=== PATIENT | male | born 1985 | race Hispanic/Latino ===

== ENCOUNTER 2017-10-02 19:49 | Emergency (ER) | payer OTHER ==
--- NOTE | 2017-10-02 21:54 | RAD REPORT ---
EXAM DESCRIPTION: Rosalio Yao (2 Views)10/02/2017 9:42 pm CLINICAL HISTORY: Cough COMPARISON: 2013 FINDINGS: The lungs appear clear of acute infiltrate. The heart is normal size IMPRESSION: No acute abnormalities displayed
[2017-10-02] MEDS ORDERED: ONDANSETRON 4 MG (ODT) TAB ONE (21:59)
[2017-10-02] MEDS ORDERED: DIAZEPAM 5 MG TABLET ONE (21:59)
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
== END 2017-10-02 22:29 | disposition home or self-care (01) ==
LOC: ER 19:49
DX: R10.30 Lower abdominal pain, unspecified (principal); V59.49XA Driver of pick-up truck or van injured in collision with other motor vehicles in traffic accident, initial encounter; F17.210 Nicotine dependence, cigarettes, uncomplicated
CPT/HCPCS: 71046; 99284

== ENCOUNTER 2018-03-25 02:42 | Emergency (ER) | payer OTHER ==
[2018-03-25] MEDS ORDERED: ONDANSETRON 4 MG/2 ML VIAL ONE (03:23)
[2018-03-25] MEDS ORDERED: NA CHLORIDE 0.9% 1,000 ML ONE (03:23)
[2018-03-25] MEDS ORDERED: MEPERIDINE HCL 50 MG/ML AMP ONE (03:23)
--- NOTE | 2018-03-25 04:27 | EDPHYS ---
Physician Documentation [facility] Name: Beto Michelle Age: 33 yrs Sex: Male : 1985 Arrival Date: 03/25/2018 Time: 02:44 Bed 5 Private MD: ED Physician Kranthi Beltrán HPI: 03/25 03:13 This 33 yrs old Male presents to ER via Ambulatory with complaints of Penile pkl Problem. 03:13 The patient presents with Prolonged painful erection. . Onset: The symptoms/episode pkl began/occurred just prior to arrival, 6 hour(s) ago. Associated signs and symptoms: The patient has no apparent associated signs or symptoms. Patient said he took Trazodone prior to onset of symptoms. Historical: - Allergies: 03:04 No Known Allergies; ao - Home Meds: 03:04 None [Active]; ao - PMHx: 03:04 None; ao - PSHx: 03:04 None; ao - Immunization history:: Adult Immunizations up to date. - Social history:: Smoking status: Patient uses tobacco products, denies chronic smoking, but will smoke occasionally, Patient uses alcohol, occasionally. Patient/guardian denies using street drugs. - Ebola Screening: : Patient negative for fever greater than or equal to 101.5 degrees Fahrenheit, and additional compatible Ebola Virus Disease symptoms Patient denies exposure to infectious person Patient denies travel to an Ebola-affected area in the 21 days before illness onset. ROS: 03:13 Eyes: Negative for injury, pain, redness, and discharge, ENT: Negative for injury, pkl pain, and discharge, Neck: Negative for injury, pain, and swelling, Cardiovascular: Negative for chest pain, palpitations, and edema, Respiratory: Negative for shortness of breath, cough, wheezing, and pleuritic chest pain, Abdomen/GI: Negative for abdominal pain, nausea, vomiting, diarrhea, and constipation, Back: Negative for injury and pain. 03:13 : Positive for painful erection. 03:13 MS/extremity: Negative for acute changes. 03:13 Skin: Negative for rash. 03:13 Neuro: Negative for altered mental status. Exam: 03:13 Head/Face: Normocephalic, atraumatic. Eyes: Pupils equal round and reactive to light, pkl extra-ocular motions intact. Lids and lashes normal. Conjunctiva and sclera are non-icteric and not injected. Cornea within normal limits. Periorbital areas with no swelling, redness, or edema. ENT: Nares patent. No nasal discharge, no septal abnormalities noted. Tympanic membranes are normal and external auditory canals are clear. Oropharynx with no redness, swelling, or masses, exudates, or evidence of obstruction, uvula midline. Mucous membranes moist. Neck: Trachea midline, no thyromegaly or masses palpated, and no cervical lymphadenopathy. Supple, full range of motion without nuchal rigidity, or vertebral point tenderness. No Meningismus. Chest/axilla: Normal chest wall appearance and motion. Nontender with no deformity. No lesions are appreciated. Cardiovascular: Regular rate and rhythm with a normal S1 and S2. No gallops, murmurs, or rubs. Normal PMI, no JVD. No pulse deficits. Respiratory: Lungs have equal breath sounds bilaterally, clear to auscultation and percussion. No rales, rhonchi or wheezes noted. No increased work of breathing, no retractions or nasal flaring. Abdomen/GI: Soft, non-tender, with normal bowel sounds. No distension or tympany. No guarding or rebound. No evidence of tenderness throughout. Back: No spinal tenderness. No costovertebral tenderness. Full range of motion. Skin: Warm, dry with normal turgor. Normal color with no rashes, no lesions, and no evidence of cellulitis. MS/ Extremity: Pulses equal, no cyanosis. Neurovascular intact. Full, normal range of motion. Neuro: Awake and alert, GCS 15, oriented to person, place, time, and situation. Cranial nerves II-XII grossly intact. Motor strength 5/5 in all extremities. Sensory grossly intact. Cerebellar exam normal. Normal gait. 03:13 : Male external genitalia: Penis slightly tender. Vital Signs: 03:02 BP 123 / 82; Pulse 55; Resp 16; Temp 97.8(O); Pulse Ox 95% on R/A; Weight 95.25 kg (R); ao Height 5 ft. 4 in. (162.56 cm) (R); Pain 2/10; 04:02 BP 99 / 54; Pulse 48; Resp 16; Pulse Ox 98% on R/A; ao 03:02 Body Mass Index 36.05 (95.25 kg, 162.56 cm) ao MDM: 04:25 Data reviewed: vital signs, nurses notes. pkl 04:26 Patient medically screened. pkl Administered Medications: 03:31 Drug: NS 0.9% 1000 ml Route: IV; Rate: 125 ml/hr; Site: right antecubital; ao 04:41 Follow up: IV Status: Completed infusion; Order to discontinue infusion; IV Intake: ao 300ml 03:32 Drug: Demerol 50 mg Route: IVP; Site: right antecubital; ao 04:42 Follow up: Response: No adverse reaction; Pain is decreased ao 03:32 Drug: Zofran 4 mg Route: IVP; Site: right antecubital; ao 04:42 Follow up: Response: No adverse reaction ao Disposition: 03/25/18 04:26 Discharged to Home. Impression: Painful penile erection ( resolved ). - Condition is Stable. - Medication Reconciliation Form, Thank You Letter, Antibiotic Education, Prescription Opioid Use form. - Follow up: Private Physician; When: 2 - 3 days; Reason: Re-evaluation by your physician. - Problem is new. - Symptoms have improved. Signatures: Kranthi Beltrán MD MD pkl Clive Ken RN RN ao Corrections: (The following items were deleted from the chart) 04:40 04:26 03/25/2018 04:26 Discharged to Home. Impression: Painful penile erection ( ao resolved ). Condition is Stable. Forms are Medication Reconciliation Form, Thank You Letter, Antibiotic Education, Prescription Opioid Use. Follow up: Private Physician; When: 2 - 3 days; Reason: Re-evaluation by your physician. Problem is new. Symptoms have improved. pkl
--- NOTE | 2018-03-25 04:27 | ER ---
Nurse's Notes [facility] Name: Beto Michelle Age: 33 yrs Sex: Male : 1985 Arrival Date: 03/25/2018 Time: 02:44 Bed 5 Private MD: Diagnosis: Painful penile erection ( resolved ) Presentation: 03/25 02:59 Presenting complaint: Patient states: I was put on Trazodone for insomnia few days ago ao and yesterday I had an erection that started about 2100. My erections didn't stop until about 0130 this morning and it was painful. Patient report calling nurse line and was recommended to come to ER. Patient report erection stopped about an hour ago. Transition of care: patient was not received from another setting of care. Onset of symptoms was March 24, 2018 at 21:00. Risk Assessment: Do you want to hurt yourself or someone else? Patient reports no desire to harm self or others. Initial Sepsis Screen: Does the patient meet any 2 criteria? No. Patient's initial sepsis screen is negative. Does the patient have a suspected source of infection? No. Patient's initial sepsis screen is negative. Care prior to arrival: None. 02:59 Method Of Arrival: Ambulatory ao 02:59 Acuity: SUSI 3 ao Historical: - Allergies: 03:04 No Known Allergies; ao - Home Meds: 03:04 None [Active]; ao - PMHx: 03:04 None; ao - PSHx: 03:04 None; ao - Immunization history:: Adult Immunizations up to date. - Social history:: Smoking status: Patient uses tobacco products, denies chronic smoking, but will smoke occasionally, Patient uses alcohol, occasionally. Patient/guardian denies using street drugs. - Ebola Screening: : Patient negative for fever greater than or equal to 101.5 degrees Fahrenheit, and additional compatible Ebola Virus Disease symptoms Patient denies exposure to infectious person Patient denies travel to an Ebola-affected area in the 21 days before illness onset. Screenin:11 Abuse screen: Denies threats or abuse. Denies injuries from another. Nutritional ao screening: No deficits noted. Tuberculosis screening: No symptoms or risk factors identified. Fall Risk None identified. Assessment: 03:04 General: Appears in no apparent distress. comfortable, Behavior is calm, cooperative, ao appropriate for age. Pain: Complains of pain in Penile Pain. Neuro: Level of Consciousness is awake, alert, obeys commands, Oriented to person, place, time, situation, Appropriate for age Moves all extremities. Full function Speech is normal, Facial symmetry appears normal, Pupils are PERRLA. Cardiovascular: Capillary refill < 3 seconds Patient's skin is warm and dry. Cardiovascular: Denies chest pain, lightheadedness, shortness of breath. Respiratory: Airway is patent Respiratory effort is even, unlabored, Respiratory pattern is regular, symmetrical. GI: Abdomen is non-distended. : Reports Erection that lasted four to five hours. EENT: No signs and/or symptoms were reported regarding the EENT system. Derm: Skin is intact, Skin is pink, warm \T\ dry. normal, Skin temperature is warm. Musculoskeletal: Circulation, motion, and sensation intact. Range of motion:. 04:02 Reassessment: Patient appears in no apparent distress at this time. Patient and/or ao family updated on plan of care and expected duration. Pain level reassessed. Patient is alert, oriented x 3, equal unlabored respirations, skin warm/dry/pink. 04:40 Reassessment: DC instructions given to patient. patient agree with the POC and to ao follow up with PCP. Vital Signs: 03:02 BP 123 / 82; Pulse 55; Resp 16; Temp 97.8(O); Pulse Ox 95% on R/A; Weight 95.25 kg (R); ao Height 5 ft. 4 in. (162.56 cm) (R); Pain 2/10; 04:02 BP 99 / 54; Pulse 48; Resp 16; Pulse Ox 98% on R/A; ao 03:02 Body Mass Index 36.05 (95.25 kg, 162.56 cm) ao ED Course: 02:44 Patient arrived in ED. ag3 02:59 Clvie Ken, LISA is Primary Nurse. ao 03:00 Kranthi Beltrán MD is Attending Physician. pkl 03:00 Inserted saline lock: 24 gauge in right antecubital area, using aseptic technique. ao 03:02 Triage completed. ao 03:04 Arm band placed on right wrist. Patient placed in an exam room, on a stretcher, on ao pulse oximetry, Patient notified of wait time. 03:11 Patient has correct armband on for positive identification. Pulse ox on. NIBP on. ao 04:38 No provider procedures requiring assistance completed. IV discontinued, intact, ao bleeding controlled, No redness/swelling at site. Pressure dressing applied. Administered Medications: 03:31 Drug: NS 0.9% 1000 ml Route: IV; Rate: 125 ml/hr; Site: right antecubital; ao 04:41 Follow up: IV Status: Completed infusion; Order to discontinue infusion; IV Intake: ao 300ml 03:32 Drug: Demerol 50 mg Route: IVP; Site: right antecubital; ao 04:42 Follow up: Response: No adverse reaction; Pain is decreased ao 03:32 Drug: Zofran 4 mg Route: IVP; Site: right antecubital; ao 04:42 Follow up: Response: No adverse reaction ao Intake: 04:41 IV: 300ml; Total: 300ml. ao Outcome: 04:26 Discharge ordered by . sarah 04:39 Discharged to home ambulatory. ao 04:39 Condition: stable 04:39 Discharge instructions given to patient, significant other, Instructed on discharge instructions, follow up and referral plans. Demonstrated understanding of instructions, follow-up care, medications. 04:40 Patient left the ED. ao Signatures: Kranthi Beltrán MD MD pkl Ortiz, Alex RN RN Odalys Mason 3
== END 2018-03-25 04:40 | disposition home or self-care (01) ==
LOC: ER 02:42
DX: N48.30 Priapism, unspecified (principal); Z72.0 Tobacco use
CPT/HCPCS: 96361; 96374; 96375; 99283; J2175; J2405; J7030

== ENCOUNTER 2019-02-24 13:36 | Emergency (ER) | payer OTHER ==
[2019-02-24 15:24] LABS: Absolute Lymphocytes (CBC) 1.8 K/uL (0.7-4.9); Basophils % 0.4 % (0-1.3); Lymphocytes % 20.1 % (15.3-44.8); RBC Red Blood Cell Count 5.21 M/uL (4.33-5.43)
[2019-02-24] MEDS ORDERED: ONDANSETRON 4 MG/2 ML VIAL ONE (15:46)
[2019-02-24] MEDS ORDERED: FAMOTIDINE 20 MG/2 ML VIAL IV ONE (15:46)
[2019-02-24] MEDS ORDERED: MORPHINE 4 MG/ML SYR ONE (15:46)
[2019-02-24] MEDS ORDERED: NA CHLORIDE 0.9% 1,000 ML ONE (15:47)
[2019-02-24 16:07] LABS: ALT/SGPT 25 U/L (12-78); AST/SGOT 12 U/L (15-37); Albumin 3.8 g/dL (3.4-5.0); Alkaline Phosphatase 87 U/L (45-117); BUN Blood Urea Nitrogen 10 mg/dL (7-18); Bicarbonate 29 mmol/L (21-32); Bilirubin Direct < 0.1 mg/dL (0-0.2); Bilirubin Total 0.3 mg/dL (0.2-1.0); Glucose Level 99 mg/dL (74-106); Lipase 126 U/L (73-393); Potassium 3.5 mmol/L (3.5-5.1); Protein, Total 7.4 g/dL (6.4-8.2); Sodium Level 143 mmol/L (136-145)
[2019-02-24 16:19] LABS: Urine Blood NEGATIVE (NEG); Urine Glucose NEGATIVE (NEG); Urine Protein NEGATIVE (NEG); Urine pH 7.5 (5.0-7.0)
--- NOTE | 2019-02-24 16:41 | RAD REPORT ---
EXAM DESCRIPTION: CT - Abdomen Pelvis W Contrast - 02/24/2019 4:26 pm CLINICAL HISTORY: ABD PAIN, patient indicates right-sided abdominal pain and nausea COMPARISON: CT imaging April 2015 TECHNIQUE: Biphasic, helical CT imaging of the abdomen and pelvis was performed following 100 ml non -ionic IV contrast. No oral contrast. All CT scans are performed using dose optimization technique as appropriate and may include automated exposure control or mA/KV adjustment according to patient size. FINDINGS: No suspicious findings in the lung bases. The liver, spleen, and pancreas show no suspicious findings. Gallbladder and biliary tree are also wi thout suspicious finding. Symmetric renal function is seen with no hydronephrosis or suspicious renal mass. No pyelonephritis o r acute parenchymal process. No bladder abnormalities. No adrenal abnormalities. No dilated bowel loops or bowel wall thickening. Appendix is normal. A few small mesenteric lymph nod es are present. No free air, free fluid or inflammatory stranding. No mass or bulky lymphadenopathy. Patient has a fat only umbilical hernia 2.5 cm in diameter with a 2.0 centimeter neck. This has enla rged slightly from the prior study. There is minimal congestion or edema of the fat within this herni a. This is not likely significant. No history provided could indicated periumbilical pain. There are no bowel loops involved. No suspicious bony findings. IMPRESSION: Contrast-enhanced CT imaging shows no acute or emergent finding. Nonacute findings are detailed in the body of the report. Patient's fat only umbilical hernia has enl arged slightly since 2014 but no history provided could indicated periumbilical pain.
--- NOTE | 2019-02-24 16:49 | RAD REPORT ---
EXAM DESCRIPTION: US - Abdomen Exam Limited - 02/24/2019 4:24 pm CLINICAL HISTORY: ABD PAIN COMPARISON: CT ABD PELVIS W CONTRAST dated 05/04/2015 FINDINGS: Gallbladder size is normal. No gallstones, wall thickening or pericholecystic fluid. Commo n bile duct is normal with no common duct stone identified. IMPRESSION: No acute gallbladder abnormality. No biliary tree dilatation or duct stone.
--- NOTE | 2019-02-24 16:53 | ER ---
Nurse's Notes [facility] Name: Beto Michelle Age: 34 yrs Sex: Male : 1985 Arrival Date: 02/24/2019 Time: 13:38 Bed 2 Private MD: Diagnosis: Abdominal tenderness;Gastritis, unspecified;Umbilical hernia Presentation: 02/24 13:52 Presenting complaint: Right sided abdominal pain and nausea since this morning. hb Transition of care: patient was not received from another setting of care. Onset of symptoms was February 24, 2019. Risk Assessment: Do you want to hurt yourself or someone else? Patient reports no desire to harm self or others. Care prior to arrival: None. 13:52 Method Of Arrival: Ambulatory hb 13:52 Acuity: SUSI 3 hb 15:00 Initial Sepsis Screen: Does the patient meet any 2 criteria? No. Patient's initial jl7 sepsis screen is negative. Does the patient have a suspected source of infection? No. Patient's initial sepsis screen is negative. Historical: - Allergies: 13:54 No Known Allergies; hb - Home Meds: 13:54 None [Active]; hb - PMHx: 16:33 Chagas disease; jl7 - PSHx: 13:54 None; hb - Immunization history:: Adult Immunizations up to date. - Social history:: Smoking status: Patient uses tobacco products, denies chronic smoking, but will smoke occasionally. - Ebola Screening: : No symptoms or risks identified at this time. - Family history:: not pertinent. Screenin:44 Abuse screen: Denies threats or abuse. Denies injuries from another. Nutritional jl7 screening: No deficits noted. Tuberculosis screening: No symptoms or risk factors identified. Fall Risk IV access (20 points). Total Castro Fall Scale indicates No Risk (0-24 pts). Assessment: 15:00 General: Appears in no apparent distress. uncomfortable, Behavior is calm, cooperative, jl7 appropriate for age. Pain: Complains of pain in right upper quadrant Pain currently is 6 out of 10 on a pain scale. Pain began 2-3 days ago. Neuro: Level of Consciousness is awake, alert, obeys commands, Oriented to person, place, time, situation. Cardiovascular: Patient's skin is warm and dry. Respiratory: Airway is patent Respiratory effort is even, unlabored, Respiratory pattern is regular, symmetrical. GI: Bowel sounds present X 4 quads. Abd is soft and non tender. : No signs and/or symptoms were reported regarding the genitourinary system. Urine is cloudy. EENT: No signs and/or symptoms were reported regarding the EENT system. Derm: Skin is pink, warm \T\ dry. Musculoskeletal: No signs and/or symptoms reported regarding the musculoskeletal system. 16:00 Reassessment: Patient appears in no apparent distress at this time. No changes from jl7 previously documented assessment. Patient and/or family updated on plan of care and expected duration. Pain level reassessed. Patient is alert, oriented x 3, equal unlabored respirations, skin warm/dry/pink. 16:40 Reassessment: Patient appears in no apparent distress at this time. pt reports jl7 increased pain, requesting the pain meds at this time, ERD notified, see MAR for orders. Vital Signs: 13:53 BP 136 / 84; Pulse 59; Resp 16; Temp 98.1; Pulse Ox 98% ; Weight 88.45 kg; Height 5 ft. hb 5 in. (165.10 cm); Pain 6/10; 16:40 BP 147 / 94; Pulse 63; Resp 18; Pulse Ox 100% ; sv 13:53 Body Mass Index 32.45 (88.45 kg, 165.10 cm) hb ED Course: 13:38 Patient arrived in ED. rg4 13:53 Triage completed. hb 13:54 Arm band placed on right wrist. hb 14:57 Modesta Burch, LISA is Primary Nurse. jl7 14:58 Sanket Beavers MD is Attending Physician. yessica 15:30 Initial lab(s) drawn, by ED staff, sent to lab. Urine collected: clean catch specimen, jl7 cloudy. Inserted saline lock: 22 gauge in right antecubital area, using aseptic technique. Blood collected. 15:55 Radiology exam delayed due to lab results not completed at this time. (BUN/Creatinine) nj IV insertion attempt and/or patient not having appropriate IV at this time. 16:41 US Abdomen Limited In Process Unspecified. EDMS 16:41 CT Abd/Pelvis - IV Contrast Only In Process Unspecified. EDMS 16:44 Patient has correct armband on for positive identification. Placed in gown. Bed in low jl7 position. Call light in reach. Side rails up X 1. Pulse ox on. NIBP on. 16:51 Sammy Jaffe MD is Referral Physician. [facility] 16:51 Bladimir Mike MD is Referral Physician. [facility] 17:01 Chest Single View XRAY In Process Unspecified. EDMS 17:16 No provider procedures requiring assistance completed. IV discontinued, intact, jl7 bleeding controlled, No redness/swelling at site. Pressure dressing applied. Administered Medications: 15:54 Drug: NS 0.9% 1000 ml Route: IV; Rate: 1 bolus; Site: right antecubital; jl7 17:00 Follow up: Response: No adverse reaction; IV Status: Completed infusion; IV Intake: jl7 1000ml 15:57 Drug: Zofran 4 mg Route: IVP; Site: right antecubital; jl7 16:32 Follow up: Response: No adverse reaction jl7 15:58 Drug: Pepcid 20 mg Route: IVP; Site: right antecubital; jl7 16:32 Follow up: Response: No adverse reaction jl7 16:32 Not Given (Patient Refused): morphine 4 mg IVP once; RASS on ADMIN: Combtv4, Very jl7 Agttd3, Agttd2, Rstlss1, AlertClm0, Drwsy-1, Lt Sdtn-2, Mod Sdtn-3, Dp Sdtn-4, UnArsble-5 16:43 Drug: morphine 4 mg Route: IVP; Site: right antecubital; jl7 17:00 Follow up: Response: No adverse reaction; Pain is decreased jl7 Intake: 17:00 IV: 1000ml; Total: 1000ml. jl7 Outcome: 16:51 Discharge ordered by . [facility] 17:16 Discharged to home ambulatory. jl7 17:16 Condition: stable 17:16 Discharge instructions given to patient, family, Instructed on discharge instructions, follow up and referral plans. medication usage, Demonstrated understanding of instructions, follow-up care, medications, Prescriptions given X 3. 17:17 Patient left the ED. jl7 Signatures: Dispatcher [employer] EDSelene Millard RN RN sv Anderson, Corey, MD MD cha Baxter, Heather, RN RN hb Garcia, Rubi rg4 Kenny Rangel Jahala, RN RN jl7 Corrections: (The following items were deleted from the chart) 54 13:54 Social history: Smoking status: Patient/guardian denies using tobacco, [facility] 16:33 13:54 PMHx: None; jl7
--- NOTE | 2019-02-24 16:53 | EDPHYS ---
Physician Documentation [facility] Name: Beto Michelle Age: 34 yrs Sex: Male : 1985 Arrival Date: 02/24/2019 Time: 13:38 Bed 2 Private MD: AYLEEN Physician Sanket Beavers HPI: 02/24 15:35 This 34 yrs old Male presents to ER via Ambulatory with complaints of yessica Abdominal Pain, Flank Pain. 15:35 The patient complains of pain in the right mid back. yessica 15:36 The patient presents with abdominal pain in the epigastric area, in the upper abdomen. yessica Onset: The symptoms/episode began/occurred 2 week(s) ago. The pain does not radiate. Onset: The symptoms/episode began/occurred 2 week(s) ago. The symptoms do not radiate. Associated signs and symptoms: The patient has no apparent associated signs or symptoms. Modifying factors: The symptoms are alleviated by food, the symptoms are aggravated by food, movement, pressure, spicy food, touching the area. Historical: - Allergies: 13:54 No Known Allergies; hb - Home Meds: 13:54 None [Active]; hb - PMHx: 16:33 Chagas disease; jl7 - PSHx: 13:54 None; hb - Immunization history:: Adult Immunizations up to date. - Social history:: Smoking status: Patient uses tobacco products, denies chronic smoking, but will smoke occasionally. - Ebola Screening: : No symptoms or risks identified at this time. - Family history:: not pertinent. ROS: 15:36 Constitutional: Negative for fever, chills, and weight loss, Eyes: Negative for injury, yessica pain, redness, and discharge, ENT: Negative for injury, pain, and discharge, Neck: Negative for injury, pain, and swelling, Cardiovascular: Negative for chest pain, palpitations, and edema, Respiratory: Negative for shortness of breath, cough, wheezing, and pleuritic chest pain, Back: Negative for injury and pain, : Negative for injury, bleeding, discharge, and swelling, MS/Extremity: Negative for injury and deformity, Skin: Negative for injury, rash, and discoloration, Neuro: Negative for headache, weakness, numbness, tingling, and seizure, Psych: Negative for depression, anxiety, suicide ideation, homicidal ideation, and hallucinations, Allergy/Immunology: Negative for hives, rash, and allergies, Endocrine: Negative for neck swelling, polydipsia, polyuria, polyphagia, and marked weight changes, Hematologic/Lymphatic: Negative for swollen nodes, abnormal bleeding, and unusual bruising. 15:36 Abdomen/GI: Positive for abdominal pain, abdominal cramps, of the right upper quadrant. Exam: 15:36 Constitutional: This is a well developed, well nourished patient who is awake, alert, yessica and in no acute distress. Head/Face: Normocephalic, atraumatic. Eyes: Pupils equal round and reactive to light, extra-ocular motions intact. Lids and lashes normal. Conjunctiva and sclera are non-icteric and not injected. Cornea within normal limits. Periorbital areas with no swelling, redness, or edema. ENT: Nares patent. No nasal discharge, no septal abnormalities noted. Tympanic membranes are normal and external auditory canals are clear. Oropharynx with no redness, swelling, or masses, exudates, or evidence of obstruction, uvula midline. Mucous membranes moist. Neck: Trachea midline, no thyromegaly or masses palpated, and no cervical lymphadenopathy. Supple, full range of motion without nuchal rigidity, or vertebral point tenderness. No Meningismus. Chest/axilla: Normal chest wall appearance and motion. Nontender with no deformity. No lesions are appreciated. Cardiovascular: Regular rate and rhythm with a normal S1 and S2. No gallops, murmurs, or rubs. Normal PMI, no JVD. No pulse deficits. Respiratory: Lungs have equal breath sounds bilaterally, clear to auscultation and percussion. No rales, rhonchi or wheezes noted. No increased work of breathing, no retractions or nasal flaring. Back: No spinal tenderness. No costovertebral tenderness. Full range of motion. Male : Normal genitalia with no discharge or lesions. Skin: Warm, dry with normal turgor. Normal color with no rashes, no lesions, and no evidence of cellulitis. MS/ Extremity: Pulses equal, no cyanosis. Neurovascular intact. Full, normal range of motion. Neuro: Awake and alert, GCS 15, oriented to person, place, time, and situation. Cranial nerves II-XII grossly intact. Motor strength 5/5 in all extremities. Sensory grossly intact. Cerebellar exam normal. Normal gait. Psych: Awake, alert, with orientation to person, place and time. Behavior, mood, and affect are within normal limits. 15:36 Abdomen/GI: Inspection: abdomen appears normal, Bowel sounds: normal, Liver: no appreciated palpable abnormalities, Hernia: not appreciated. Vital Signs: 13:53 BP 136 / 84; Pulse 59; Resp 16; Temp 98.1; Pulse Ox 98% ; Weight 88.45 kg; Height 5 ft. hb 5 in. (165.10 cm); Pain 6/10; 16:40 BP 147 / 94; Pulse 63; Resp 18; Pulse Ox 100% ; sv 13:53 Body Mass Index 32.45 (88.45 kg, 165.10 cm) hb MDM: 14:58 Patient medically screened. [facility] 15:40 Data reviewed: vital signs, nurses notes, lab test result(s), radiologic studies, CT [facility] scan, plain films, ultrasound. 02/24 15:03 Order name: Basic Metabolic Panel 02/24 15:03 Order name: CBC with Diff 02/24 15:03 Order name: Creatinine for Radiology 02/24 15:03 Order name: Hepatic Function 02/24 15:03 Order name: Lipase 02/24 15:36 Order name: CBC with Automated Diff; Complete Time: 16:29 EDAR 02/24 15:34 Order name: Chest Single View XRAY [facility] 02/24 15:34 Order name: US Abdomen Limited [facility] 02/24 15:34 Order name: CT Abd/Pelvis - IV Contrast Only [facility] 02/24 16:11 Order name: Urine Dipstick--Ancillary (enter results) [facility] 02/24 16:21 Order name: Urine Dipstick-Ancillary; Complete Time: 16:29 EDMS 02/24 15:03 Order name: IV Saline Lock; Complete Time: 15:40 sv 02/24 15:03 Order name: Labs collected and sent; Complete Time: 15:41 sv Administered Medications: 15:54 Drug: NS 0.9% 1000 ml Route: IV; Rate: 1 bolus; Site: right antecubital; jl7 17:00 Follow up: Response: No adverse reaction; IV Status: Completed infusion; IV Intake: jl7 1000ml 15:57 Drug: Zofran 4 mg Route: IVP; Site: right antecubital; jl7 16:32 Follow up: Response: No adverse reaction jl7 15:58 Drug: Pepcid 20 mg Route: IVP; Site: right antecubital; jl7 16:32 Follow up: Response: No adverse reaction jl7 16:32 Not Given (Patient Refused): morphine 4 mg IVP once; RASS on ADMIN: Combtv4, Very jl7 Agttd3, Agttd2, Rstlss1, AlertClm0, Drwsy-1, Lt Sdtn-2, Mod Sdtn-3, Dp Sdtn-4, UnArsble-5 16:43 Drug: morphine 4 mg Route: IVP; Site: right antecubital; jl7 17:00 Follow up: Response: No adverse reaction; Pain is decreased jl7 Disposition: 02/24/19 16:51 Discharged to Home. Impression: Abdominal tenderness, Gastritis, unspecified, Umbilical hernia. - Condition is Stable. - Discharge Instructions: Abdominal Pain, Adult, Abdominal Pain, Adult, [id number]. - Prescriptions for Bentyl 20 mg Oral Tablet - take 1 tablet by ORAL route every 6 hours As needed; 20 tablet. Protonix 40 mg Oral Tablet - take 1 tablet by ORAL route once daily; 30 tablet. Zofran 4 mg Oral Tablet - take 1 tablet by ORAL route every 12 hours As needed; 20 tablet. - Medication Reconciliation Form, Thank You Letter, Antibiotic Education, Prescription Opioid Use, Work release form form. - Follow up: Private Physician; When: 2 - 3 days; Reason: Recheck today's complaints, Continuance of care, Re-evaluation by your physician. Follow up: Sammy Jaffe; When: 2 - 3 days; Reason: Recheck today's complaints, Continuance of care, Re-evaluation by your physician. Follow up: Bladimir Mike MD; When: 2 - 3 days; Reason: Recheck today's complaints, Re-evaluation by your physician. - Problem is new. - Symptoms have improved. Signatures: Dispatcher [employer] Selene Luque RN RN sv Anderson, Corey, MD MD cha Baxter, Heather RN Modesta Rangel RN RN jl7 Corrections: (The following items were deleted from the chart) 13:54 13:54 Social history: Smoking status: Patient/guardian denies using tobacco, hb hb 16:33 13:54 PMHx: None; hb jl7 17:17 16:51 02/24/2019 16:51 Discharged to Home. Impression: Abdominal tenderness; Gastritis, jl7 unspecified; Umbilical hernia. Condition is Stable. Discharge Instructions: Abdominal Pain, Adult, Abdominal Pain, Adult, [id number]. Prescriptions for Bentyl 20 mg Oral Tablet - take 1 tablet by ORAL route every 6 hours As needed; 20 tablet, Protonix 40 mg Oral Tablet - take 1 tablet by ORAL route once daily; 30 tablet, Zofran 4 mg Oral Tablet - take 1 tablet by ORAL route every 12 hours As needed; 20 tablet. and Forms are Medication Reconciliation Form, Thank You Letter, Antibiotic Education, Prescription Opioid Use. Follow up: Private Physician; When: 2 - 3 days; Reason: Recheck today's complaints, Continuance of care, Re-evaluation by your physician. Follow up: Sammy Jaffe; When: 2 - 3 days; Reason: Recheck today's complaints, Continuance of care, Re-evaluation by your physician. Follow up: Bladimir Mike; When: 2 - 3 days; Reason: Recheck today's complaints, Re-evaluation by your physician. Problem is new. Symptoms have improved. yessica
--- NOTE | 2019-02-24 17:05 | RAD REPORT ---
EXAM DESCRIPTION: RAD - Chest Single View - 02/24/2019 4:47 pm CLINICAL HISTORY: Abdominal pain, abdominal distention COMPARISON: September 2017 TECHNIQUE: AP portable chest image was obtained 1630 hours . FINDINGS: Lungs are clear. Heart and vasculature are normal. No measurable pleural effusion and no p neumothorax. No acute bony abnormality seen. No acute aortic findings suspected. IMPRESSION: No acute cardiopulmonary process. No significant change from comparison.
== END 2019-02-24 17:17 | disposition home or self-care (01) ==
LOC: ER 13:36
DX: K29.70 Gastritis, unspecified, without bleeding (principal); K42.9 Umbilical hernia without obstruction or gangrene; Z72.0 Tobacco use
CPT/HCPCS: 96361; 85025; 80048; 36415; 80076; 81003; 83690; 74177; 71045; 76705; 96375; 96374; 99284; Q9967; J7030; J2405

== ENCOUNTER 2019-05-10 07:06 | Emergency (ER) | payer OTHER ==
--- OUTSIDE RECORDS SUMMARY | 2019-05-10 07:08 | XMS REPORT ---
:1985 Author Organization [facility] Address [address] [place] [address] Care Team Providers Name Role Phone Unavailable Unavailable Unavailable Payers Payer Name Policy Type Policy Number Effective Date Expiration Date Problems This patient has no known problems. Allergies, Adverse Reactions, Alerts This patient has no known allergies or adverse reactions. Medications This patient has no known medications.
--- OUTSIDE RECORDS SUMMARY | 2019-05-10 07:09 | XMS REPORT ---
:1985 Author Organization eClinicalWorks Care Team Providers Name Role Phone Krystal Paige Provider Role Unavailable Allergies, Adverse Reactions, Alerts Substance Reaction Event Type N.K.D.A. Info Not Available Non Drug Allergy Problems Problem Type Condition Code Onset Dates Condition Status Problem Nausea and vomiting, intractability R11.2 Active of vomiting not specified, unspecified vomiting type Problem Memory problem R41.3 Active Problem Migraines G43.909 Active Problem S/P umbilical hernia repair, Z09 Active follow-up exam Problem Abdominal pain, unspecified R10.9 Active abdominal location Problem Umbilical pain R10.33 Active Problem Umbilical hernia without K42.9 Active obstruction and without gangrene Problem Depression F32.9 Active Problem Depression screening Z13.31 Active Problem Chagas disease 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 Active Assessment Umbilical pain R10.33 Active Problem Medical history non-contributory Z78.9 Active Assessment S/P umbilical hernia repair, Z09 Active follow-up exam Problem Pharyngitis, unspecified etiology J02.9 Active Medications Medication Code Code Instructions Start End Status Dosage System Date Date Augmentin [facility] 93152286531 875-125 MG Apr 30, Active 1 tablet Orally every 12 2018 hrs Multivitamins [facility] 88487-60210 Active not defined PredniSONE [facility] [id number] 20 MG Orally May 22, Active 1 tablet twice a day 2018 Results No Known Results Summary Purpose eClinicalWorks Submission
[2019-05-10] MEDS ORDERED: KETOROLAC 30 MG/ML INJ ONE (07:24)
[2019-05-10] MEDS ORDERED: DIAZEPAM 5 MG TABLET ONE ×2 (07:24→07:25)
--- NOTE | 2019-05-10 08:07 | ER ---
Nurse's Notes [facility] Name: Beto Michelle Age: 34 yrs Sex: Male : 1985 Arrival Date: 05/10/2019 Time: 07:07 Bed 5 Private MD: Diagnosis: Low back pain Presentation: 05/10 07:17 Presenting complaint: Patient states: I have had three days of bad back pain that la1 radiates down both legs, denies urinary sx, denies numbness/tingling. Transition of care: patient was not received from another setting of care. Onset of symptoms was May 10, 2019. Risk Assessment: Do you want to hurt yourself or someone else? Patient reports no desire to harm self or others. Initial Sepsis Screen: Does the patient meet any 2 criteria? No. Patient's initial sepsis screen is negative. Does the patient have a suspected source of infection? No. Patient's initial sepsis screen is negative. Care prior to arrival: None. 07:17 Method Of Arrival: Ambulatory la1 07:17 Acuity: SUSI 3 la1 Historical: - Allergies: 07:18 No Known Allergies; la1 - PMHx: 07:18 Chagas disease; la1 - Immunization history:: Adult Immunizations up to date. - Social history:: Smoking status: Patient/guardian denies using tobacco. - Ebola Screening: : No symptoms or risks identified at this time. Screenin:19 Abuse screen: Denies threats or abuse. Nutritional screening: No deficits noted. la1 Tuberculosis screening: No symptoms or risk factors identified. Fall Risk None identified. Assessment: 07:19 General: Appears in no apparent distress. Behavior is calm, cooperative. Pain: la1 Complains of pain in lumbar area Pain radiates to right leg and left leg. Neuro: Level of Consciousness is awake, alert, obeys commands, Oriented to person, place, time, situation. Cardiovascular: Capillary refill < 3 seconds Patient's skin is warm and dry. Respiratory: Airway is patent Respiratory effort is even, unlabored, Respiratory pattern is regular, symmetrical. GI: No signs and/or symptoms were reported involving the gastrointestinal system. : No signs and/or symptoms were reported regarding the genitourinary system. Musculoskeletal: Circulation, motion, and sensation intact. Capillary refill < 3 seconds, is brisk, in bilateral toes. Range of motion: intact in all extremities. Vital Signs: 07:18 BP 128 / 82; Pulse 72; Resp 16; Temp 97.1; Pulse Ox 100% on R/A; Weight 97.52 kg; la1 ED Course: 07:07 Patient arrived in ED. as 07:09 [facility] pm1 07:09 Mauro Cee MD is Attending Physician. pm1 07:17 Akbar Quiroga RN is Primary Nurse. la1 07:18 Triage completed. la1 07:19 Arm band placed on right wrist. la1 07:20 Patient has correct armband on for positive identification. la1 08:13 No provider procedures requiring assistance completed. Patient did not have IV access la1 during this emergency room visit. Administered Medications: 07:24 Not Given (Physician Discretion): Valium 5 mg PO once pm1 07:29 Drug: TORadol 60 mg Route: IM; Site: left gluteus; la1 08:12 Follow up: Response: No adverse reaction la1 07:30 Drug: Valium 10 mg Route: PO; la1 08:12 Follow up: Response: No adverse reaction la1 08:12 Drug: Decadron 10 mg Route: IM; Site: Other; la1 08:12 Follow up: Response: No adverse reaction la1 Outcome: 08:05 Discharge ordered by . pm1 08:13 Discharged to home ambulatory. la1 08:13 Condition: stable 08:13 Discharge instructions given to patient, Instructed on discharge instructions, follow up and referral plans. medication usage, Demonstrated understanding of instructions, follow-up care, medications, Prescriptions given X 2. 08:13 Patient left the ED. la1 Signatures: Aida Escobar Lee, RN RN la1 Yonas Mederos NP ROADS SUPERVISOR pm1
--- NOTE | 2019-05-10 08:07 | EDPHYS ---
Physician Documentation [facility] Name: Beto Michelle Age: 34 yrs Sex: Male : 1985 Arrival Date: 05/10/2019 Time: 07:07 Bed 5 Private MD: ED Physician Mauro Cee HPI: 05/10 07:30 This 34 yrs old Male presents to ER via Ambulatory with complaints of Low Back pm1 Pain. 07:30 The patient presents with pain that is acute. The symptoms are located in the low back. pm1 The problem was sustained from unknown cause. Onset: The symptoms/episode began/occurred 3 day(s) ago. Modifying factors: The patient symptoms are alleviated by remaining still, the patient symptoms are aggravated by bending, movement, twisting. Associated signs and symptoms: The patient has no apparent associated signs or symptoms, Pertinent negatives: abdominal pain, chest pain, dysuria, fever, headache, nausea, numbness, tingling, vomiting, weakness. Severity of symptoms: in the emergency department the symptoms are unchanged. The patient has not experienced similar symptoms in the past. The patient has not recently seen a physician. Historical: - Allergies: 07:18 No Known Allergies; la1 - PMHx: 07:18 Chagas disease; la1 - Immunization history:: Adult Immunizations up to date. - Social history:: Smoking status: Patient/guardian denies using tobacco. - Ebola Screening: : No symptoms or risks identified at this time. ROS: 07:30 Constitutional: Negative for fever, chills, and weight loss, Eyes: Negative for injury, pm1 pain, redness, and discharge, ENT: Negative for injury, pain, and discharge, Neck: Negative for injury, pain, and swelling, Cardiovascular: Negative for chest pain, palpitations, and edema, Respiratory: Negative for shortness of breath, cough, wheezing, and pleuritic chest pain, Abdomen/GI: Negative for abdominal pain, nausea, vomiting, diarrhea, and constipation. 07:30 : Negative for injury, bleeding, discharge, and swelling, MS/Extremity: Negative for injury and deformity, Skin: Negative for injury, rash, and discoloration, Neuro: Negative for headache, weakness, numbness, tingling, and seizure. 07:30 Back: Positive for of the low back area. Exam: 07:30 Constitutional: This is a well developed, well nourished patient who is awake, alert, pm1 and in no acute distress. Head/Face: Normocephalic, atraumatic. Neck: Trachea midline, no thyromegaly or masses palpated, and no cervical lymphadenopathy. Supple, full range of motion without nuchal rigidity, or vertebral point tenderness. No Meningismus. Chest/axilla: Normal chest wall appearance and motion. Nontender with no deformity. No lesions are appreciated. Cardiovascular: Regular rate and rhythm with a normal S1 and S2. No gallops, murmurs, or rubs. Normal PMI, no JVD. No pulse deficits. Respiratory: Lungs have equal breath sounds bilaterally, clear to auscultation and percussion. No rales, rhonchi or wheezes noted. No increased work of breathing, no retractions or nasal flaring. Abdomen/GI: Soft, non-tender, with normal bowel sounds. No distension or tympany. No guarding or rebound. No evidence of tenderness throughout. 07:30 Skin: Warm, dry with normal turgor. Normal color with no rashes, no lesions, and no evidence of cellulitis. MS/ Extremity: Pulses equal, no cyanosis. Neurovascular intact. Full, normal range of motion. 07:30 Back: pain, that is moderate, of the left low back and right low back, Straight leg raises: pain bilaterally. 07:30 Neuro: Orientation: is normal, Motor: moves all fours, strength is 5/5 in the dorsi and plantar flexion of bilateral great toes, Sensation: is normal, no obvious gross deficits, Deep tendon reflexes are 2+ (normal) in the right Achilles and left Achilles, Babinski testing is normal. Vital Signs: 07:18 BP 128 / 82; Pulse 72; Resp 16; Temp 97.1; Pulse Ox 100% on R/A; Weight 97.52 kg; la1 MDM: 07:09 Patient medically screened. pm1 07:56 Data reviewed: vital signs. Data interpreted: Pulse oximetry: on room air is 100 %. pm1 Interpretation: normal. 08:05 Counseling: I had a detailed discussion with the patient and/or guardian regarding: the pm1 historical points, exam findings, and any diagnostic results supporting the discharge/admit diagnosis, the need for outpatient follow up, to return to the emergency department if symptoms worsen or persist or if there are any questions or concerns that arise at home. Administered Medications: 07:24 Not Given (Physician Discretion): Valium 5 mg PO once pm1 07:29 Drug: TORadol 60 mg Route: IM; Site: left gluteus; la1 08:12 Follow up: Response: No adverse reaction la1 07:30 Drug: Valium 10 mg Route: PO; la1 08:12 Follow up: Response: No adverse reaction la1 08:12 Drug: Decadron 10 mg Route: IM; Site: Other; la1 08:12 Follow up: Response: No adverse reaction la1 Disposition: 05/11 00:39 Co-signature as Attending Physician, Mauro Cee MD. rn Disposition: 05/10/19 08:05 Discharged to Home. Impression: Low back pain. - Condition is Stable. - Discharge Instructions: Back Pain, Adult. - Prescriptions for Diclofenac Sodium 75 mg Oral Tablet, Delayed Release (E.C.) - take 1 tablet by ORAL route 2 times per day As needed; 30 tablet. Medrol (Joss) 4 mg Oral Tablets, Dose Pack - take 1 tablet by ORAL route as directed - follow package instructions; 1 packet. - Work release form, Medication Reconciliation Form, Thank You Letter, Antibiotic Education, Prescription Opioid Use form. - Follow up: Emergency Department; When: As needed; Reason: Worsening of condition. Follow up: Private Physician; When: 2 - 3 days; Reason: Recheck today's complaints, Continuance of care, Re-evaluation by your physician. - Problem is new. - Symptoms have improved. Signatures: Mauro Cee MD MD rn Attema, Lee, RN RN la1 Yonas Mederos, CRISTIAN [employer] THREAD MACHINE OPERATOR pm1 Corrections: (The following items were deleted from the chart) 05/10 08:13 08:05 05/10/2019 08:05 Discharged to Home. Impression: Low back pain. Condition is la1 Stable. Discharge Instructions: Back Pain, Adult. Prescriptions for Valium 5 mg Oral Tablet - take 1 tablet by ORAL route every 8 hours As needed; 20 tablet, Diclofenac Sodium 75 mg Oral Tablet Sustained Release - take 1 tablet by ORAL route 2 times per day; 30 tablet, Medrol (Ojss) 4 mg Oral Tablets, Dose Pack - take 1 tablet by ORAL route as directed - follow package instructions; 1 packet. and Forms are Medication Reconciliation Form, Thank You Letter, Antibiotic Education, Prescription Opioid Use. Follow up: Emergency Department; When: As needed; Reason: Worsening of condition. Follow up: Private Physician; When: 2 - 3 days; Reason: Recheck today's complaints, Continuance of care, Re-evaluation by your physician. Problem is new. Symptoms have improved. pm1
[2019-05-10] MEDS ORDERED: dexAMETHasone 10 MG/ML VIAL ONE (08:09)
[2019-05-10 08:18] VITALS: BP 128/82; TEMP 97.1; O2SAT 100
== END 2019-05-10 08:13 | disposition home or self-care (01) ==
LOC: ER 07:06
DX: M54.5 Low back pain (principal)
CPT/HCPCS: 96372; 99283; J1100

== ENCOUNTER 2019-09-30 | Emergency (ER) | payer OTHER | END 2019-09-30 23:26 | disposition home or self-care (01) | CPT/HCPCS: 85025; 80048; 36415; 80076; 83690; 74177; 96375; 96374; 99284; Q9967; J2405 ==

== ENCOUNTER 2020-01-26 17:52 | Emergency (ER) | payer OTHER ==
--- OUTSIDE RECORDS SUMMARY | 2020-01-26 17:53 | XMS REPORT | Continuity of Care Document ---
:1985 Author Organization [facility] t Address [address] [place] [address] Care Team Providers Name Role Phone Unavailable Unavailable Unavailable Payers Payer Name Policy Type Policy Number Effective Date Expiration Date S ource Problems Condition Condition Condition Status Onset Resolution Last Treating Co mments Source Name Details Category Date Date Treatment Clinician Date Medical Medical Problem Active [facility] non-[facility]ri non-contri Me moria butory butory l [facility] Chagas Chagas Problem Active [facility] disease disease [facility] Pharyngiti Pharyngiti Problem Active [facility] s, s, [facility] - unspecifie unspecifie Me moria d etiology d etiology l [facility] Memory Memory Problem Active [facility] problem problem [facility] Migraines Migraines Problem Active [facility] Depression Depression Problem [facility] Abdominal Abdominal Problem Active [facility] pain, pain, [facility] - unspecifie unspecifie Me moria d d l abdominal abdominal Outp ati location location ent Clinics Depression Depression Problem Active [facility] screening screening [facility] - [facility] Umbilical Umbilical Problem Active [facility] hernia hernia [facility] - without without Memoria obstructio obstructio l n and n and Outpati without without ent gangrene gangrene Clinic s Nausea and Nausea and Problem Active [facility] vomiting, vomiting, [facility] - intractabi intractabi Me moria lity of lity of l vomiting vomiting Outpat i not not ent specified, specified, Cl inics unspecifie unspecifie d vomiting d vomiting type type S/P S/P Problem Active [facility] umbilical umbilical [facility] - hernia hernia Memoria repair, repair, l follow-up follow-up Outp ati exam exam ent Clinics Umbilical Umbilical Problem Active [facility] pain pain [facility] Depression Depression Diagnosis Active [facility] with with [facility] - anxiety anxiety [facility] Increased Increased Problem Active [facility] body body [facility] weight weight [facility] Fatigue, Fatigue, Diagnosis Active [facility] unspecifie unspecifie Faiza kes - d type d type Memoria l [facility] JOYCE JOYCE Problem Active [facility] (obstructi (obstructi Faiza kes - ve sleep ve sleep Memori a apnea) apnea) l [facility] CPAP CPAP Problem Active [facility] (continuou (continuou Faiza kes - s positive s positive Me moria airway airway l pressure) pressure) Outp ati dependence dependence en t Clinics PTSD PTSD Diagnosis Active [facility] (post-trau (post-trau Faiza kes - matic matic Memoria stress stress l disorder) disorder) Outp ati ent Clinics Allergies, Adverse Reactions, Alerts This patient has no known allergies or adverse reactions. Medications Ordered Filled Start Stop Current Ordering Indication Dosage Frequency Signature Comments Components Source Medication Medication Date Date Medication? Clinician (SIG) Name Name PredniSONE PredniSONE 2017-06 Yes Krystal [address] [facility] 1[facility]29 [facility] 00[facility] 00 [facility] Augmentin Augmentin 2017-06 Yes Krystal [address] [facility] 1[facility]07 [facility] Multivitami Multivitami Yes Krystal not [facility] ns ns Millender defined [facility] Procedures This patient has no known procedures. Encounters Start End Encounter Admission Attending Care Care Encounter Source Date/Time Date/Time Type Type Clinicians Facility Department ID 2019-06-02 2019-06-02 Outpatient Vandana Wilks [id number] [facility] [address] 15:00:00 15:00:00 [facility] - [facility] 2019-04-15 2019-04-15 Outpatient Vandana Wilks [id number] [facility] 10[facility]20[facility] 10:[facility]:00 [facility] 2019-03-03 2019-03-03 Outpatient Vandana Wilks [id number] [facility] 15:20:00 15:20:00 [facility] ent Clinics Results This patient has no known results.
[2020-01-26] MEDS ORDERED: METOCLOPRAMIDE 10 MG/2mL INJ ONE (18:34)
[2020-01-26] MEDS ORDERED: dexAMETHasone 10 MG/ML VIAL ONE (18:34)
[2020-01-26] MEDS ORDERED: NA CHLORIDE 0.9% 1,000 ML ONE (18:34)
[2020-01-26] MEDS ORDERED: DIPHENHYDRAMINE 50 MG/ML VIAL ONE (18:34)
--- NOTE | 2020-01-26 19:07 | RAD REPORT ---
EXAM DESCRIPTION: CT - Head Brain Wo Cont - 01/26/2020 6:57 pm CLINICAL HISTORY: Headache COMPARISON: None. TECHNIQUE: Computed axial tomography of the head was obtained. IV contrast was not requested. All CT scans are performed using dose optimization technique as appropriate and may include automated exposure control or mA/KV adjustment according to patient size. FINDINGS: An intracranial bleed is not seen . The ventricles are normal in caliber. No extra-axial fluid collection is noted. Fluid within the sinuses/ mastoids is not seen. IMPRESSION: No acute intracranial abnormality is seen. If patient's symptoms persist MRI of the bra in would be recommended.
--- NOTE | 2020-01-26 19:34 | ER ---
Nurse's Notes [facility] Name: Beto Michelle Age: 34 yrs Sex: Male : 1985 Arrival Date: 01/26/2020 Time: 18:01 Bed 16 Private MD: Diagnosis: Migraine Presentation: 01/25 18:15 Chief complaint: Patient states: i have had a headache for 2 days, hasnt been that bad tw2 just annoying, then about 6 hours ago it got real severe, and just worse and worse to the point I am nauseous and vomiting, no congestion but i feel chills every now and then. Coronavirus screen: Client denies travel out of the [place] in the last 14 days. chills, headache. Ebola Screen: Patient denies travel to an Ebola-affected area in the 21 days before illness onset. Initial Sepsis Screen: Does the patient meet any 2 criteria? No. Patient's initial sepsis screen is negative. Does the patient have a suspected source of infection? No. Patient's initial sepsis screen is negative. Risk Assessment: Do you want to hurt yourself or someone else? Patient reports no desire to harm self or others. Onset of symptoms was January 26, 2020. 18:15 Method Of Arrival: Ambulatory tw2 18:15 Acuity: SUSI 3 tw2 Triage Assessment: 18:18 Headache History: Denies prior headaches. General: Appears uncomfortable, well groomed, tw2 Behavior is calm, appropriate for age, quiet. Pain: Complains of pain in top of head and forehead Pain radiates to scalp Pain currently is 10 out of 10 on a pain scale. Pain began 2-3 days ago. started 2 days ago but got worse 6 hours ago Also complains of photophobia. Neuro: Reports headache photophobia. Historical: - Allergies: 18:15 No Known Allergies; jl7 - Home Meds: 18:15 None [Active]; jl7 - PMHx: 18:15 None; jl7 - PSHx: 18:15 Hernia repair; jl7 - Immunization history:: Adult Immunizations unknown. - Social history:: Smoking status: Patient denies any tobacco usage or history of. Screenin:15 Abuse screen: Denies threats or abuse. Denies injuries from another. Nutritional jl7 screening: No deficits noted. Tuberculosis screening: No symptoms or risk factors identified. 18:19 Fall Risk None identified. tw2 Assessment: 18:30 General: Appears uncomfortable, well groomed, Behavior is calm, cooperative, tw2 appropriate for age. Pain: Complains of pain in forehead and top of head. Neuro: Level of Consciousness is awake, alert, obeys commands, Oriented to person, place, time, situation, Reports headache. Cardiovascular: Heart tones S1 S2 Patient's skin is warm and dry. Respiratory: Airway is patent Respiratory effort is even, unlabored, Respiratory pattern is regular, symmetrical, Breath sounds are clear bilaterally. GI: Abdomen is flat, Bowel sounds present X 4 quads. Reports nausea. : No signs and/or symptoms were reported regarding the genitourinary system. EENT: No signs and/or symptoms were reported regarding the EENT system. Derm: No signs and/or symptoms reported regarding the dermatologic system. Musculoskeletal: Range of motion: intact in all extremities. 19:24 Reassessment: Patient and/or family updated on plan of care and expected duration. Pain mt2 level reassessed. Patient is alert, oriented x 3, equal unlabored respirations, skin warm/dry/pink. Patient states feeling better. Patient states symptoms have improved. General: Appears comfortable, Behavior is cooperative. Vital Signs: 18:15 BP 128 / 88; Pulse 66; Resp 17; Temp 98.5(O); Pulse Ox 97% on R/A; Weight 113.4 kg (R); tw2 Height 64 in. (162.56 cm); Pain 10/10; 18:30 Pulse 39; tw2 18:44 BP 128 / 85; Pulse 49; Resp 17; Pulse Ox 98% on R/A; tw2 19:25 BP 101 / 59; Pulse 51; Resp 16; Pulse Ox 96% on R/A; Pain 0/10; mt2 18:15 Body Mass Index 42.91 (113.40 kg, 162.56 cm) tw2 18:30 pt a\\T\\o x 4, states "i have a low heart rate, normally its 48 or 42", provider notified. tw2 ED Course: 18:01 Patient arrived in ED. fj1 18:15 Patient has correct armband on for positive identification. Placed in gown. Bed in low jl7 position. Call light in reach. Side rails up X 1. front desk monitor on. Pulse ox on. NIBP on. 18:16 Arm band placed on right wrist. jl7 18:18 Triage completed. tw2 18:18 Sanket Beavers MD is Attending Physician. yessica 18:19 Roger Strange PA is PHCP. jr8 18:20 Nicole Cooper, RN is Primary Nurse. tw2 18:30 Inserted saline lock: 20 gauge in left antecubital area, using aseptic technique. tw2 18:55 CT Head Brain wo Cont In Process Unspecified. EDMS 19:15 Primary Nurse role handed off by Nicole Cooper, LISA mt2 19:15 Becky Soares RN is Primary Nurse. mt2 19:34 Alexi Mcdonald MD is Referral Physician. jr8 19:38 No provider procedures requiring assistance completed. IV discontinued, intact, mt2 bleeding controlled, No redness/swelling at site. Pressure dressing applied. Administered Medications: 18:30 Drug: Benadryl 25 mg Route: IVP; Site: left antecubital; tw2 19:24 Follow up: Response: No adverse reaction; Pain is decreased mt2 18:30 Drug: NS 0.9% 1000 ml Route: IV; Rate: 1000 ml; Site: left antecubital; tw2 19:38 Follow up: Response: No adverse reaction; IV Status: Completed infusion mt2 18:35 Drug: Decadron - Dexamethasone 10 mg Route: IVP; Site: left antecubital; tw2 19:24 Follow up: Response: No adverse reaction; Pain is decreased mt2 18:40 Drug: Reglan 10 mg Route: IVP; Site: left antecubital; tw2 19:24 Follow up: Response: No adverse reaction; Pain is decreased mt2 Outcome: 19:34 Discharge ordered by . jr8 19:38 Discharged to home ambulatory. mt2 19:38 Condition: good 19:38 Discharge instructions given to patient, Instructed on discharge instructions, follow up and referral plans. medication usage, Demonstrated understanding of instructions, follow-up care, medications, Prescriptions given X 1. 19:45 Patient left the ED. mt2 Signatures: Dispatcher [employer] EDNC Sanket Beavers MD MD cha Roszak, Josh, PA PA jr8 Nicole Cooper, RN RN tw2 Modesta Burch, RN RN jl7 Baljeet Ford fj1 Becky Soares, RN RN mt2
--- NOTE | 2020-01-26 19:35 | EDPHYS ---
Physician Documentation [facility] Name: Beto Michelle Age: 34 yrs Sex: Male : 1985 Arrival Date: 01/26/2020 Time: 18:01 Bed 16 Private MD: ED Physician Sanket Beavers HPI: 01/25 19:09 This 34 yrs old Male presents to ER via Ambulatory with complaints of jr8 Headache, Worst Ever, Vomiting. 19:09 The patient complains of pain to the right congregation and left congregation. The patient jr8 describes the headache as throbbing. Onset: The symptoms/episode began/occurred acutely, today. Associated signs and symptoms: Pertinent positives: dizziness, nausea, Photophobia vomiting. Severity of symptoms: At its worst the pain was moderate, in the emergency department the pain is unchanged. Headache History: The patient has had previous headaches and this one is different than previous episodes, and this one is more severe than previous episodes. The symptoms are alleviated by nothing. the symptoms are aggravated by lights, movement, noise. The patient has not experienced similar symptoms in the past. The patient has not recently seen a physician. Historical: - Allergies: 18:15 No Known Allergies; jl7 - Home Meds: 18:15 None [Active]; jl7 - PMHx: 18:15 None; jl7 - PSHx: 18:15 Hernia repair; jl7 - Immunization history:: Adult Immunizations unknown. - Social history:: Smoking status: Patient denies any tobacco usage or history of. ROS: 19:09 Eyes: Negative for injury, pain, redness, and discharge, ENT: Negative for injury, jr8 pain, and discharge, Neck: Negative for injury, pain, and swelling, Cardiovascular: Negative for chest pain, palpitations, and edema, Respiratory: Negative for shortness of breath, cough, wheezing, and pleuritic chest pain, Abdomen/GI: Negative for abdominal pain, nausea, vomiting, diarrhea, and constipation, Back: Negative for injury and pain, MS/Extremity: Negative for injury and deformity, Skin: Negative for injury, rash, and discoloration. 19:09 Neuro: Positive for dizziness, headache. jr8 Exam: 19:09 Head/Face: Normocephalic, atraumatic. Eyes: Pupils equal round and reactive to light, jr8 extra-ocular motions intact. Lids and lashes normal. Conjunctiva and sclera are non-icteric and not injected. Cornea within normal limits. Periorbital areas with no swelling, redness, or edema. ENT: Nares patent. No nasal discharge, no septal abnormalities noted. Tympanic membranes are normal and external auditory canals are clear. Oropharynx with no redness, swelling, or masses, exudates, or evidence of obstruction, uvula midline. Mucous membranes moist. Neck: Trachea midline, no thyromegaly or masses palpated, and no cervical lymphadenopathy. Supple, full range of motion without nuchal rigidity, or vertebral point tenderness. No Meningismus. Cardiovascular: Regular rate and rhythm with a normal S1 and S2. No gallops, murmurs, or rubs. Normal PMI, no JVD. No pulse deficits. Respiratory: Lungs have equal breath sounds bilaterally, clear to auscultation and percussion. No rales, rhonchi or wheezes noted. No increased work of breathing, no retractions or nasal flaring. Abdomen/GI: Soft, non-tender, with normal bowel sounds. No distension or tympany. No guarding or rebound. No evidence of tenderness throughout. Skin: Warm, dry with normal turgor. Normal color with no rashes, no lesions, and no evidence of cellulitis. MS/ Extremity: Pulses equal, no cyanosis. Neurovascular intact. Full, normal range of motion. Neuro: Awake and alert, GCS 15, oriented to person, place, time, and situation. Cranial nerves II-XII grossly intact. Motor strength 5/5 in all extremities. Sensory grossly intact. Cerebellar exam normal. Normal gait. Vital Signs: 18:15 BP 128 / 88; Pulse 66; Resp 17; Temp 98.5(O); Pulse Ox 97% on R/A; Weight 113.4 kg (R); tw2 Height 64 in. (162.56 cm); Pain 10/10; 18:30 Pulse 39; tw2 18:44 BP 128 / 85; Pulse 49; Resp 17; Pulse Ox 98% on R/A; tw2 19:25 BP 101 / 59; Pulse 51; Resp 16; Pulse Ox 96% on R/A; Pain 0/10; mt2 18:15 Body Mass Index 42.91 (113.40 kg, 162.56 cm) tw2 18:30 pt a\\T\\o x 4, states "i have a low heart rate, normally its 48 or 42", provider notified. tw2 MDM: 18:18 Patient medically screened. [facility] 19:33 Data reviewed: vital signs, nurses notes, radiologic studies, CT scan. Data jr8 interpreted: Pulse oximetry: on room air is 96 %. Interpretation: normal. Counseling: I had a detailed discussion with the patient and/or guardian regarding: the historical points, exam findings, and any diagnostic results supporting the discharge/admit diagnosis, radiology results, the need for outpatient follow up, a family practitioner, a neurologist, to return to the emergency department if symptoms worsen or persist or if there are any questions or concerns that arise at home. Response to treatment: the patient's symptoms have resolved after treatment, and as a result, I will discharge patient. 01/25 18:20 Order name: CT Head Brain wo Cont; Complete Time: 19:09 jr8 01/25 18:20 Order name: IV; Complete Time: 18:40 jr8 Administered Medications: 18:30 Drug: Benadryl 25 mg Route: IVP; Site: left antecubital; tw2 19:24 Follow up: Response: No adverse reaction; Pain is decreased mt2 18:30 Drug: NS 0.9% 1000 ml Route: IV; Rate: 1000 ml; Site: left antecubital; tw2 19:38 Follow up: Response: No adverse reaction; IV Status: Completed infusion mt2 18:35 Drug: Decadron - Dexamethasone 10 mg Route: IVP; Site: left antecubital; tw2 19:24 Follow up: Response: No adverse reaction; Pain is decreased mt2 18:40 Drug: Reglan 10 mg Route: IVP; Site: left antecubital; tw2 19:24 Follow up: Response: No adverse reaction; Pain is decreased mt2 Disposition: 01/26 06:36 Co-signature as Attending Physician, Sanket Beavers MD I agree with the assessment and [facility] plan of care. Disposition: 01/26/20 19:34 Discharged to Home. Impression: Migraine. - Condition is Stable. - Discharge Instructions: Migraine Headache. - Prescriptions for Fioricet 50- 325-40 mg Oral tablet - take 2 tablet by ORAL route every 4 hours as needed not to exceed 6 tablets per 24hrs; 20 tablet. - Medication Reconciliation Form, Thank You Letter, Antibiotic Education, Prescription Opioid Use form. - Follow up: Alexi Mcdonald MD; When: 1 week; Reason: Recheck today's complaints, Continuance of care, Re-evaluation by your physician. - Problem is new. - Symptoms are resolved. Signatures: Dispatcher [employer] EDMS Sanket Beavers MD MD cha Roszak, Josh, PA PA jr8 Nicole Cooper RN RN tw2 Modesta Burch RN RN jl7 Becky Soares RN RN mt2 Corrections: (The following items were deleted from the chart) 01/25 19:10 19:09 Eyes: Negative for injury, pain, redness, and discharge, ENT: Negative for jr8 injury, pain, and discharge, Neck: Negative for injury, pain, and swelling, Cardiovascular: Negative for chest pain, palpitations, and edema, Respiratory: Negative for shortness of breath, cough, wheezing, and pleuritic chest pain, Abdomen/GI: Negative for abdominal pain, nausea, vomiting, diarrhea, and constipation, Back: Negative for injury and pain, MS/Extremity: Negative for injury and deformity, Skin: Negative for injury, rash, and discoloration, Neuro: Negative for headache, weakness, numbness, tingling, and seizure, jr8 19:45 19:34 01/26/2020 19:34 Discharged to Home. Impression: Migraine. Condition is Stable. mt2 Forms are Medication Reconciliation Form, Thank You Letter, Antibiotic Education, Prescription Opioid Use. Follow up: Alexi Mcdonald; When: 1 week; Reason: Recheck today's complaints, Continuance of care, Re-evaluation by your physician. Problem is new. Symptoms are resolved. jr8
[2020-01-26 20:03] VITALS: TEMP 98.5
[2020-01-26 20:07] VITALS: BP 101/59; O2SAT 96
== END 2020-01-26 19:45 | disposition home or self-care (01) ==
LOC: ER 17:52
DX: G43.909 Migraine, unspecified, not intractable, without status migrainosus (principal)
CPT/HCPCS: 70450; J2765; J1200; J1100; J7030; 96361; 96374; 96375; 99284

== ENCOUNTER 2022-01-04 09:47 | Emergency (ER) | payer OTHER ==
[2022-01-04] MEDS ORDERED: FAMOTIDINE 20 MG/2 ML VIAL IV ONE (10:30)
[2022-01-04] MEDS ORDERED: NA CHLORIDE 0.9% 1,000 ML ONE (10:30)
[2022-01-04 10:43] LABS: Urine Blood Negative (Negative); Urine Glucose Negative (Negative); Urine Protein Negative (Negative); Urine Specific Gravity >=1.030 (1.005-1.030)
[2022-01-04 10:45] LABS: Absolute Lymphocytes (CBC) 2.3 K/uL (0.7-4.9); Hematocrit 47.3 % (39.6-49.0); Lymphocytes % 26.3 % (15.3-44.8); MCV 86.8 fL (80-100); MPV 8.7 fL (7.6-11.3); RBC Red Blood Cell Count 5.45 M/uL (4.33-5.43)
[2022-01-04 11:01] LABS: Albumin 3.7 g/dL (3.4-5.0); Bilirubin Total 0.3 mg/dL (0.2-1.0); Protein, Total 7.7 g/dL (6.4-8.2)
--- NOTE | 2022-01-04 11:43 | RAD REPORT ---
EXAM DESCRIPTION: CT - Abdomen Pelvis W Contrast - 01/04/2022 11:26 am CLINICAL HISTORY: Abdominal pain/epigastric pain COMPARISON: 2020 TECHNIQUE: Computed axial tomography of the abdomen pelvis was obtained. 100 cc Isovue-300 was admin istered intravenously. Oral contrast was not requested which limits evaluation of bowel and appendix All CT scans are performed using dose optimization technique as appropriate and may include automated exposure control or mA/KV adjustment according to patient size. FINDINGS: The liver, spleen, pancreas, adrenal and left kidney appear unremarkable. Tiny calculus right kidney. No hydronephrosis There is no evidence of diverticulitis. Normal appendix Postsurgical changes of an umbilical hernia repair IMPRESSION: Tiny nonobstructing calculus right kidney
--- NOTE | 2022-01-04 12:49 | RAD REPORT ---
EXAM DESCRIPTION: US - Abdomen Exam Limited - 01/04/2022 12:39 pm CLINICAL HISTORY: EPIGASTRIC PAIN COMPARISON: Abdomen Exam Limited dated 02/24/2019 FINDINGS: The gallbladder demonstrates no gallstones. No pericholecystic fluid or gallbladder wall t hickening. The common bile duct is not dilated. The liver demonstrates no findings of intrahepatic biliary dilatation. IMPRESSION: Unremarkable examination.
--- NOTE | 2022-01-04 13:25 | EDPHYS ---
Physician Documentation [facility] Name: Beto Michelle Age: 36 yrs Sex: Male : 1985 Arrival Date: 01/04/2022 Time: 09:49 Bed 20 Private MD: ED Physician Don Adkins HPI: 01/04 10:20 This 36 yrs old Male presents to ER via Ambulatory with complaints of pm1 Abdominal Pain. 10:20 The patient presents with abdominal pain in the epigastric area, in the right upper pm1 quadrant. 10:20 Onset: The symptoms/episode began/occurred 2 week(s) ago. The symptoms do not radiate. pm1 Associated signs and symptoms: none. Pertinent negatives: nausea, vomiting, and diarrhea. The symptoms are described as sharp, stabbing. Modifying factors: the symptoms are aggravated by food. Severity of pain: in the emergency department the pain has resolved. The patient has not experienced similar symptoms in the past. The patient has not recently seen a physician. Historical: - Allergies: 09:58 No Known Allergies; iw - Home Meds: 09:58 None [Active]; iw - PMHx: 09:58 None; iw - PSHx: 09:58 umbilical hernia; iw - Immunization history:: Client reports receiving the 1st dose of the Covid vaccine. - Social history:: Smoking status: Patient reports the use of cigarette tobacco products, Patient uses alcohol, occasionally. ROS: 10:20 Constitutional: Negative for fever, chills, and weight loss, Cardiovascular: Negative pm1 for chest pain, palpitations, and edema, Respiratory: Negative for shortness of breath, cough, wheezing, and pleuritic chest pain. 10:20 Back: Negative for injury and pain, MS/Extremity: Negative for injury and deformity, Skin: Negative for injury, rash, and discoloration, Neuro: Negative for headache, weakness, numbness, tingling, and seizure. 10:20 Abdomen/GI: Positive for abdominal pain, of the epigastric area and right upper quadrant, Negative for nausea, vomiting, and diarrhea. 10:20 All other systems are negative. Exam: 10:20 Constitutional: This is a well developed, well nourished patient who is awake, alert, pm1 and in no acute distress. Head/Face: Normocephalic, atraumatic. 10:20 Back: No spinal tenderness. No costovertebral tenderness. Full range of motion. Skin: Warm, dry with normal turgor. Normal color with no rashes, no lesions, and no evidence of cellulitis. MS/ Extremity: Pulses equal, no cyanosis. Neurovascular intact. Full, normal range of motion. 10:20 Cardiovascular: Exam negative for acute changes, Rate: normal, Rhythm: regular, Pulses: no pulse deficits are appreciated, Heart sounds: normal, normal S1and S2. 10:20 Respiratory: Exam negative for acute changes, respiratory distress, shortness of breath, Breath sounds: are clear throughout. 10:20 Abdomen/GI: Inspection: abdomen appears normal, Palpation: soft, in all quadrants, mild abdominal tenderness, in the epigastric area and right upper quadrant. 10:20 Neuro: Exam negative for acute changes, Orientation: is normal, Mentation: is normal, Motor: is normal, moves all fours. Vital Signs: 09:56 BP 128 / 82; Pulse 53; Resp 16; Temp 98.1; Pulse Ox 98% on R/A; Weight 102.51 kg; iw Height 5 ft. 4 in. (162.56 cm); Pain 2/10; 10:44 BP 128 / 80; Pulse 49; Resp 16; Pulse Ox 100% on R/A; hb 11:48 BP 121 / 65; Pulse 51; Resp 16; Pulse Ox 100% ; bp 13:13 BP 119 / 68; Pulse 16; Resp 16; Pulse Ox 100% ; bp 09:56 Body Mass Index 38.79 (102.51 kg, 162.56 cm) iw MDM: 10:02 Patient medically screened. pm1 13:23 Data reviewed: vital signs. Data interpreted: Pulse oximetry: on room air is 100 %. pm1 Interpretation: normal. Counseling: I had a detailed discussion with the patient and/or guardian regarding: the historical points, exam findings, and any diagnostic results supporting the discharge/admit diagnosis, lab results, radiology results, the need for outpatient follow up, a family practitioner, a senior network engineer, to return to the emergency department if symptoms worsen or persist or if there are any questions or concerns that arise at home. 01/04 10:20 Order name: CBC with Diff; Complete Time: 11:21 pm1 01/04 10:20 Order name: CMP; Complete Time: 11:21 pm1 01/04 10:20 Order name: Lipase; Complete Time: 11:21 pm1 01/04 10:20 Order name: CT Abd/Pelvis - IV Contrast Only; Complete Time: 12:05 pm1 01/04 10:23 Order name: SARS-COV-2 RT PCR (Document "Date of Onset" if Symptomatic); Complete Time: eb 12:05 01/04 10:43 Order name: Urine Dipstick-Ancillary; Complete Time: 11:21 EDMS 01/04 10:20 Order name: IV Saline Lock; Complete Time: 10:35 pm1 01/04 10:20 Order name: Labs collected and sent; Complete Time: 10:35 pm1 01/04 10:20 Order name: Urine Dipstick-Ancillary (obtain specimen); Complete Time: 10:35 pm1 01/04 12:11 Order name: US Abdomen Limited; Complete Time: 13:00 pm1 Administered Medications: 10:34 Drug: NS 0.9% 1000 ml Route: IV; Rate: 1 bolus; Site: right antecubital; hb 11:47 Follow up: IV Status: Completed infusion; IV Intake: 1000ml bp 10:35 Drug: Pepcid (famotidine) 20 mg Route: IVP; Site: right antecubital; hb 11:47 Follow up: Response: No adverse reaction bp Disposition: 13:44 Attestation: The patient's history, exam findings, diagnostics, and a summary of any 11 interventions or procedures was reviewed in detail with Yonas Mederos NP. Disposition Summary: 01/04/22 13:24 Discharge Ordered Location: Home pm1 Problem: new pm1 Symptoms: have improved pm1 Condition: Stable pm1 Diagnosis - Abdominal pain, unspecified pm1 Followup: pm1 - With: Emergency Department - When: As needed - Reason: Worsening of condition Followup: pm1 - With: Private Physician - When: 2 - 3 days - Reason: Recheck today's complaints, Continuance of care, Re-evaluation by your physician Discharge Instructions: - Discharge Summary Sheet pm1 - Abdominal Pain, Adult pm1 Forms: - Medication Reconciliation Form pm1 - Thank You Letter pm1 - Antibiotic Education pm1 - Prescription Opioid Use pm1 - Work release form eb Prescriptions: - Pepcid 20 mg Oral Tablet - take 1 tablet by ORAL route every 12 hours for 10 days; 20 tablet; Refills: 0, pm1 Product Selection Permitted - dicyclomine 20 mg Oral Tablet - take 1 tablet by ORAL route every 6 hours As needed; 20 tablet; Refills: 0, pm1 Product Selection Permitted Signatures: Dispatcher [employer] Priscilla Munroe RN RN iw Yonas Mederos, CRISTIAN PROFESSIONAL GOLF TOURNAMENT PLAYER pm1 Alysha Dove RN RN Don Adkins MD MD jr11 Jerry Roque RN bp
--- NOTE | 2022-01-04 13:25 | ER ---
Nurse's Notes [facility] Name: Beto Michelle Age: 36 yrs Sex: Male : 1985 Arrival Date: 01/04/2022 Time: 09:49 Bed 20 Private MD: Diagnosis: Abdominal pain, unspecified Presentation: 01/04 09:56 Chief complaint: Patient states: RUQ pain X 2 weeks , hurts worse after eating , dull iw pressure pain , stabbing pain after eating , also having vomiting , diarrhea, and cloudy urine. Coronavirus screen: At this time, the client does not indicate any symptoms associated with coronavirus-19. Ebola Screen: Patient negative for fever greater than or equal to 101.5 degrees Fahrenheit, and additional compatible Ebola Virus Disease symptoms Patient denies exposure to infectious person. Patient denies travel to an Ebola-affected area in the 21 days before illness onset. No symptoms or risks identified at this time. Initial Sepsis Screen: Does the patient meet any 2 criteria? No. Patient's initial sepsis screen is negative. Does the patient have a suspected source of infection? No. Patient's initial sepsis screen is negative. Risk Assessment: Do you want to hurt yourself or someone else? Patient reports no desire to harm self or others. Onset of symptoms was December 22, 2021. 09:56 Method Of Arrival: Ambulatory iw 09:56 Acuity: SUSI 3 iw Historical: - Allergies: 09:58 No Known Allergies; iw - Home Meds: 09:58 None [Active]; iw - PMHx: 09:58 None; iw - PSHx: 09:58 umbilical hernia; iw - Immunization history:: Client reports receiving the 1st dose of the Covid vaccine. - Social history:: Smoking status: Patient reports the use of cigarette tobacco products, Patient uses alcohol, occasionally. Screenin:43 Abuse screen: Denies threats or abuse. Denies injuries from another. Nutritional hb screening: No deficits noted. Tuberculosis screening: No symptoms or risk factors identified. Fall Risk None identified. Assessment: 10:43 General: Appears in no apparent distress. Behavior is calm, cooperative. Pain: Pain hb currently is 3 out of 10 on a pain scale. Neuro: Level of Consciousness is awake, alert, obeys commands, Oriented to person, place, time, situation. Cardiovascular: Patient's skin is warm and dry. Respiratory: Respiratory effort is even, unlabored, Respiratory pattern is regular, symmetrical. GI: Reports upper abdominal pain. : No signs and/or symptoms were reported regarding the genitourinary system. EENT: No signs and/or symptoms were reported regarding the EENT system. Derm: Skin is pink, warm \T\ dry. Musculoskeletal: No signs and/or symptoms reported regarding the musculoskeletal system. 11:48 Reassessment: PT RETURNED FROM RADIOLOGY. bp 13:35 Reassessment: PT D/C HOME AMBULATORY WITH FAMILY, DX WITH ABDOMINAL PAIN. bp Vital Signs: 09:56 BP 128 / 82; Pulse 53; Resp 16; Temp 98.1; Pulse Ox 98% on R/A; Weight 102.51 kg; iw Height 5 ft. 4 in. (162.56 cm); Pain 2/10; 10:44 BP 128 / 80; Pulse 49; Resp 16; Pulse Ox 100% on R/A; hb 11:48 BP 121 / 65; Pulse 51; Resp 16; Pulse Ox 100% ; bp 13:13 BP 119 / 68; Pulse 16; Resp 16; Pulse Ox 100% ; bp 09:56 Body Mass Index 38.79 (102.51 kg, 162.56 cm) iw ED Course: 09:49 Patient arrived in ED. mr 09:58 Triage completed. iw 09:59 Arm band placed on. iw 10:02 Yonas Mederos NP is PHCP. pm1 10:02 Don Adkins MD is Attending Physician. pm1 10:20 Patient has correct armband on for positive identification. Placed in gown. Bed in low hb position. Call light in reach. Side rails up X 1. 10:25 Alysha Dove, RN is Primary Nurse. hb 10:28 Inserted saline lock: 20 gauge in right antecubital area, using aseptic technique. hb Blood collected. 11:28 CT Abd/Pelvis - IV Contrast Only In Process Unspecified. EDMS 12:41 US Abdomen Limited In Process Unspecified. EDMS 13:35 No provider procedures requiring assistance completed. IV discontinued, intact, bp bleeding controlled, No redness/swelling at site. Pressure dressing applied. Administered Medications: 10:34 Drug: NS 0.9% 1000 ml Route: IV; Rate: 1 bolus; Site: right antecubital; hb 11:47 Follow up: IV Status: Completed infusion; IV Intake: 1000ml bp 10:35 Drug: Pepcid (famotidine) 20 mg Route: IVP; Site: right antecubital; hb 11:47 Follow up: Response: No adverse reaction bp Medication: 10:45 VIS not applicable for this client. hb Intake: 11:47 IV: 1000ml; Total: 1000ml. bp Outcome: 13:24 Discharge ordered by MD. pm1 13:35 Discharged to home ambulatory, with family. bp 13:35 Condition: stable 13:35 Discharge instructions given to patient, Instructed on discharge instructions, follow up and referral plans. medication usage, Demonstrated understanding of instructions, follow-up care, medications, Prescriptions given X 2. 13:36 Patient left the ED. bp Signatures: Dispatcher [employer] Khadijah Dumas Irene, RN LISA iw Yonas Mederos, CRISTIAN DECK MATE pm1 Alysha Dove RN RN hb Peltier, Brian, RN RN bp
[2022-01-04 13:50] VITALS: TEMP 98.1
[2022-01-04 13:51] VITALS: O2SAT 100
[2022-01-04 13:54] VITALS: BP 119/68
== END 2022-01-04 13:36 | disposition home or self-care (01) ==
LOC: ER 09:47
DX: R10.13 Epigastric pain (principal); R10.11 Right upper quadrant pain; Z20.822 Contact with and (suspected) exposure to COVID-19; Z72.0 Tobacco use
CPT/HCPCS: 96361; 85025; 36415; 81003; 83690; 80053; 74177; 76705; 96374; 99284; U0003; Q9967; J7030; J3490

== ENCOUNTER 2022-03-24 17:12 | Emergency (ER) | payer OTHER ==
--- OUTSIDE RECORDS SUMMARY | 2022-03-24 17:15 | XMS REPORT | Continuity of Care Document ---
:1985 Author Organization [facility] t Address [address] [place] [address] Care Team Providers Name Role Phone Unavailable Unavailable Unavailable Payers Payer Name Policy Type Policy Number Effective Date Expiration Date S ource Problems Condition Condition Condition Status Onset Resolution Last Treating Co mments Source Name Details Category Date Date Treatment Clinician Date Medical Medical Problem Active Common history history Spirit non-contri non-contri - [facility] butory butory [facility] [place] Problem Active Common disease disease [facility] Pharyngiti Pharyngiti Problem Active C ommon s, s, Spirit unspecifie unspecifie - [facility] d etiology d etiology [facility] Memory Memory Problem Active Common problem problem [facility] Migraines Migraines Problem Active Com mon Spirit [facility] Depression Depression Problem Active C ommon Spirit [facility] Abdominal Abdominal Problem Active Com mon pain, pain, Spirit unspecifie unspecifie - [facility] d d St abdominal abdominal [facility] s location [facility] Depression Depression Problem Active C ommon screening screening Spir it CHI [facility] Umbilical Umbilical Problem Active Com mon hernia hernia Spirit without without - [facility] obstructio obstructio St n and n and [facility] without without Medical gangrene gangrene Center Nausea and Nausea and Problem Active C ommon vomiting, vomiting, Spir it intractabi intractabi - [facility] lity of lity of St vomiting vomiting [facility] not not Medical specified, specified, Ce nter unspecifie unspecifie d vomiting d vomiting type type S/P S/P Problem Active Common umbilical umbilical Spir it hernia hernia - [facility] repair, repair, St follow-up follow-up [facility] exam exam Medical Hessel Umbilical Umbilical Problem Active Com mon pain pain Spirit [facility] Depression Depression Diagnosis Active Common with with Spirit anxiety anxiety [facility] Increased Increased Problem Active Com mon body body Spirit weight weight - CHI [facility] Fatigue, Fatigue, Diagnosis Active Com mon unspecifie unspecifie Sp laura d type d type - [facility] JOYCE JOYCE Problem Active Common (obstructi (obstructi Sp laura ve sleep ve sleep - CHI apnea) apnea) [facility] CPAP CPAP Problem Active Common (continuou (continuou Sp alura s positive s positive - [facility]I airway airway St pressure) pressure) [facility] Diagnosis Active Common (post-trau (post-trau Sp laura matic matic - [facility]I stress stress St disorder) disorder) [facility] Allergies, Adverse Reactions, Alerts This patient has no known allergies or adverse reactions. Medications Ordered Filled Start Stop Current Ordering Indication Dosage Frequency Signature Comments Components Source Medication Medication Date Date Medication? Clinician (SIG) Name Name PredniSONE PredniSONE 2017-06 Yes Krystal 1 tablet Common 07-22 Sandagender Spirit 00:00: - [facility] Augmentin Augmentin 2017-06 Yes Krystal 1 tablet Common 06-30 Millender Spirit 00:00: [facility] Multivitami Multivitami Yes Krystal not Common ns ns [facility] defined [facility] Procedures This patient has no known procedures. Encounters Start End Encounter Admission Attending Care Care Encounter Source Date/Time Date/Time Type Type Clinicians Facility Department ID 2019-06-02 2019-06-02 Outpatient Vandana Wilks [id number] Common 15:00:00 15:00:00 [facility] 2019-04-15 2019-04-15 Outpatient Vandana Wilks [id number] Common 10:20:00 10:20:00 [facility] it [facility] 2019-03-03 2019-03-03 Outpatient Vandana Wilks [id number] Common 15:20:00 15:20:00 t [facility] it [address] [facility] Results This patient has no known results.
--- NOTE | 2022-03-24 17:36 | ER ---
Nurse's Notes [facility] Name: Beto Michelle Age: 37 yrs Sex: Male : 1985 Arrival Date: 03/24/2022 Time: 17:14 Bed Waiting Private MD: Diagnosis: Hordeolum externum right upper eyelid Presentation: 03/24 17:26 Chief complaint: Patient states: I woke up with a stye in my right eye and its starting eh3 to really swell. Coronavirus screen: At this time, the client does not indicate any symptoms associated with coronavirus-19. Ebola Screen: No symptoms or risks identified at this time. Initial Sepsis Screen: Does the patient meet any 2 criteria? No. Patient's initial sepsis screen is negative. Does the patient have a suspected source of infection? No. Patient's initial sepsis screen is negative. Risk Assessment: Do you want to hurt yourself or someone else? Patient reports no desire to harm self or others. Onset of symptoms was March 24, 2022. 17:26 Method Of Arrival: Ambulatory eh3 17:26 Acuity: SUSI 4 eh3 Triage Assessment: 17:26 General: Appears in no apparent distress. uncomfortable, Behavior is calm, cooperative, eh3 appropriate for age. Pain: Complains of pain in right eye. EENT: Sclera/Cornea are reddened in outer aspect of conjuctiva of right eye, iris of right eye, inner aspect of conjuctiva of right eye and right inner canthus Reports blurred vision in right eye photophobia in right eye. Neuro: No deficits noted. Cardiovascular: No deficits noted. Respiratory: No deficits noted. GI: No deficits noted. No signs and/or symptoms were reported involving the gastrointestinal system. : No deficits noted. No signs and/or symptoms were reported regarding the genitourinary system. Derm: No deficits noted. No signs and/or symptoms reported regarding the dermatologic system. Musculoskeletal: No deficits noted. No signs and/or symptoms reported regarding the musculoskeletal system. Historical: - Home Meds: 17:26 None [Active]; eh3 - PMHx: 17:26 None; eh3 - PSHx: 17:26 Umbilical hernia; eh3 - Immunization history:: Adult Immunizations up to date. - Social history:: Smoking status: Patient denies any tobacco usage or history of. Screenin:46 Abuse screen: Denies threats or abuse. Nutritional screening: No deficits noted. bm7 Tuberculosis screening: No symptoms or risk factors identified. Fall Risk None identified. Assessment: 17:46 Reassessment: No changes from previously documented assessment. bm7 Vital Signs: 17:25 BP 129 / 88; Pulse 64; Resp 16; Temp 98.6(TE); Pulse Ox 100% on R/A; Weight 104.33 kg eh3 (R); Height 5 ft. 6 in. (167.64 cm); Pain 5/10; 17:25 Body Mass Index 37.12 (104.33 kg, 167.64 cm) 3 ED Course: 17:14 Patient arrived in ED. as 17:25 Arm band placed on right wrist. 3 17:26 Triage completed. 3 17:28 [facility] 17:28 Selene Blair MD is Attending Physician. [facility] 17:35 Randolph Velarde MD is Referral Physician. [facility] 17:46 Patient has correct armband on for positive identification. bm7 17:46 No provider procedures requiring assistance completed. Patient did not have IV access bm7 during this emergency room visit. Administered Medications: No medications were administered Medication: 17:46 VIS not applicable for this client. bm7 Outcome: 17:35 Discharge ordered by . [facility] 17:46 Discharged to home ambulatory, with family. bm7 17:46 Condition: good 17:46 Discharge instructions given to patient, family, Instructed on discharge instructions, follow up and referral plans. medication usage, Demonstrated understanding of instructions, follow-up care, medications, Prescriptions given X 2. 17:47 Patient left the ED. 7 Signatures: Doe Wilks PA PA jmm Martinez, Amelia as McCarthy, Brittany RN RN [facility] Meagan Bagley RN RN [facility]
--- NOTE | 2022-03-24 17:36 | EDPHYS ---
Physician Documentation [facility] Name: Beto Michelle Age: 37 yrs Sex: Male : 1985 Arrival Date: 03/24/2022 Time: 17:14 Bed Waiting Private MD: ED Physician Selene Blair HPI: 03/24 17:31 This 37 yrs old Male presents to ER via Ambulatory with complaints of Eye jmm Swelling. 17:31 The patient is experiencing redness. Onset: The symptoms/episode began/occurred jmm gradually. Aggravated by nothing. Alleviated by nothing. This is a 37 year old male with no chronic conditions that presents to the ED with complaints of right eyelid swelling beginning approx 1 day ago. Denies fever, injury. . Historical: - Home Meds: 17:26 None [Active]; eh3 - PMHx: 17:26 None; eh3 - PSHx: 17:26 Umbilical hernia; eh3 - Immunization history:: Adult Immunizations up to date. - Social history:: Smoking status: Patient denies any tobacco usage or history of. ROS: 17:31 Constitutional: Negative for fever, chills, and weight loss, Cardiovascular: Negative jmm for chest pain, palpitations, and edema, Respiratory: Negative for shortness of breath, cough, wheezing, and pleuritic chest pain. 17:31 Eyes: Positive for swelling. 17:31 All other systems are negative. Exam: 17:31 Constitutional: This is a well developed, well nourished patient who is awake, alert, jmm and in no acute distress. Head/Face: atraumatic. 17:31 ENT: Moist Mucus Membranes Neck: Trachea midline, Supple Chest/axilla: Normal chest wall appearance and motion. Cardiovascular: Regular rate and rhythm. No edema appreciated Respiratory: Normal respirations, no respiratory distress appreciated Abdomen/GI: Non distended Back: Normal ROM Skin: General appearance color normal MS/ Extremity: Moves all extremities, no obvious deformities appreciated, no edema noted to the lower extremities Neuro: Awake and alert Psych: Behavior is normal, Mood is normal, Patient is cooperative and pleasant 17:31 Eyes: Lids and lashes: stye, seen on the right lid. Vital Signs: 17:25 BP 129 / 88; Pulse 64; Resp 16; Temp 98.6(TE); Pulse Ox 100% on R/A; Weight 104.33 kg 3 (R); Height 5 ft. 6 in. (167.64 cm); Pain 5/10; 17:25 Body Mass Index 37.12 (104.33 kg, 167.64 cm) 3 MDM: 17:29 Patient medically screened. [facility] 17:34 Data reviewed: vital signs, nurses notes. Counseling: I had a detailed discussion with moy the patient and/or guardian regarding: the historical points, exam findings, and any diagnostic results supporting the discharge/admit diagnosis, the need for outpatient follow up, to return to the emergency department if symptoms worsen or persist or if there are any questions or concerns that arise at home. Administered Medications: No medications were administered Disposition Summary: 03/24/22 17:35 Discharge Ordered Location: Home [facility] Condition: Stable [facility] Diagnosis - Hordeolum externum right upper eyelid [facility] Followup: [facility] - With: Randolph Velarde MD - When: 2 - 3 days - Reason: Recheck today's complaints, Continuance of care, Re-evaluation by your physician Discharge Instructions: - Discharge Summary Sheet moy Woods [facility] Forms: - Medication Reconciliation Form [facility] - Thank You Letter [facility] - Antibiotic Education [facility] - Prescription Opioid Use [facility] - Work release form 3 Prescriptions: - Augmentin 875-125 mg Oral Tablet - take 1 tablet by ORAL route every 12 hours for 10 days; 20 tablet; Refills: 0, [facility] Product Selection Permitted - Erythromycin 5 mg/gram (0.5 %) Ophthalmic Ointment - apply 1 centimeter by OPHTHALMIC route 2-3 times daily for 7 days; 1 tube; [facility] Refills: 0, Product Selection Permitted Signatures: Doe Wilks PA PA jmm Hall, Erin, RN RN 3
[2022-03-24 18:10] VITALS: BP 129/88; TEMP 98.6; O2SAT 100
== END 2022-03-24 17:47 | disposition home or self-care (01) ==
LOC: ER 17:12
DX: H00.011 Hordeolum externum right upper eyelid (principal)
CPT/HCPCS: 99282